=== PATIENT | female | born 2000 | race Caucasian/White ===

== ENCOUNTER 2023-09-06 01:43 | Emergency (ER) | payer SELFPAY ==
[2023-09-06 01:59] VITALS: BMI 27.9
[2023-09-06] MEDS ORDERED: MAG HYDROX/AL HYDROX/SIMETH 30 ML UNIT-DOSE CUP PO ONE (02:28)
[2023-09-06] MEDS ORDERED: SODIUM CHLORIDE 0.9% 500 ML INFUS.BAG IV ONE ×2 (02:29→03:38)
[2023-09-06] MEDS ORDERED: ACETAMINOPHEN 1000 MG/100 ML BAG IVPB ONE (02:30)
[2023-09-06] MEDS ORDERED: SIMETHICONE 80 MG TAB.CHEW (FP) PO PRN (02:31)
[2023-09-06] MEDS ORDERED: FAMOTIDINE 20 MG/50 ML IVPB 20 MG/50 ML MG IVPB ONE ×2 (02:33→03:05)
[2023-09-06] MEDS ORDERED: ACETAMINOPHEN INJECTION 100 ML IVPB ONE (02:33)
[2023-09-06] MEDS ORDERED: MAG HYDROX/AL HYDROX/SIMETH 30 ML UNIT-DOSE CUP ONE (02:33)
[2023-09-06] MEDS ORDERED: ONDANSETRON 4 MG/2 ML VIAL IVPUSH ONE (03:04)
[2023-09-06] MEDS ORDERED: ONDANSETRON 4 MG/2 ML VIAL ONE (03:05)
[2023-09-06 03:12] LABS: BASO % 0.4 % (0-2.0); EOS % 0.4 % (0-4.5); HEMATOCRIT 34.4 % (32.4-45.2); MCH 23.4 pg (25.7-33.7); MCHC 32.1 g/dl (32.0-36.0); MEAN PLT VOLUME 7.4 fl (7.5-11.1); MONO % 8.7 % (3.8-10.2); NEUT % 68.5 % (42.8-82.8); PLATELET COUNT 473 10^3/uL (134-434); RBC 4.71 M/mm3 (3.60-5.2); RDW 18.6 % (11.6-15.6); WHITE BLOOD COUNT 10.3 K/mm3 (4.0-10.0)
[2023-09-06 03:20] LABS: CALCIUM 9.4 mg/dL (8.5-10.1)
[2023-09-06 03:21] LABS: ALBUMIN 4.3 g/dl (3.4-5.0); BLOOD UREA NITROGEN 22.5 mg/dL (7-18)
[2023-09-06 03:23] LABS: CREATININE 1.5 mg/dL (0.55-1.3)
[2023-09-06 03:25] LABS: BILIRUBIN,TOTAL 0.4 mg/dL (0.2-1); TOT PROT 8.9 g/dl (6.4-8.2)
[2023-09-06 03:54] LABS: EPI CELLS >36 /uL (0-25.1); HYALINE CASTS 1 /uL (0-3.1); URINE APPEARANCE CLEAR; URINE BACTERIA 746 /uL (0-1359); URINE BILIRUBIN NEGATIVE (NEGATIVE); URINE COLOR YELLOW; URINE GLUCOSE (UA) NEGATIVE (NEGATIVE); URINE KETONE NEGATIVE (NEGATIVE); URINE LEUK ESTERASE 2+ (NEGATIVE); URINE NITRITE NEGATIVE (NEGATIVE); URINE PROTEIN 1+ (NEGATIVE); URINE RBC 49 /uL (0-23.9); URINE UROBILINOGEN 0.2 mg/dL (0.2-1.0); URINE WBC 36 /uL (0-25.8)
[2023-09-06] MEDS ORDERED: CEPHALEXIN MONOHYDRATE 500 MG CAPSULE (UD) PO ONE (04:16)
[2023-09-06] MEDS ORDERED: CEPHALEXIN MONOHYDRATE 500 MG CAPSULE (UD) ONE (04:21)
[2023-09-06 06:41] VITALS: BP 108/74; PULSE 68; RESP 12; TEMP 98
[2023-09-06 07:07] LABS: POTASSIUM 4.2 mmol/L (3.5-5.1)
[2023-09-06 07:08] LABS: CALCIUM 8.3 mg/dL (8.5-10.1)
[2023-09-06 07:09] LABS: BLOOD UREA NITROGEN 20.7 mg/dL (7-18)
[2023-09-06 07:12] LABS: CREATININE 1.4 mg/dL (0.55-1.3)
[2023-09-06] MEDS ORDERED: PSYLLIUM 5.85 GM PACKET PO SCH (10:00)
== END 2023-09-06 08:02 | disposition home or self-care (01) ==
LOC: JER 01:43
PROC: 3E033GC Introduction of Other Therapeutic Substance into Peripheral Vein, Percutaneous Approach (ICD-10-PCS; principal; 2023-09-06)
PROC: 3E033NZ Introduction of Analgesics, Hypnotics, Sedatives into Peripheral Vein, Percutaneous Approach (ICD-10-PCS; 2023-09-06)
PROC: 3E033GC Introduction of Other Therapeutic Substance into Peripheral Vein, Percutaneous Approach (ICD-10-PCS; 2023-09-06)
DX: R10.13 Epigastric pain (principal); K59.00 Constipation, unspecified; N39.0 Urinary tract infection, site not specified; R10.11 Right upper quadrant pain; R10.12 Left upper quadrant pain; R11.10 Vomiting, unspecified; R63.0 Anorexia; Z20.822 Contact with and (suspected) exposure to COVID-19
CPT/HCPCS: 0241U-QW; 36415; 74176-TC; 80048; 80053; 81003; 83690; 84703; 85025; 87086; 99284-25

== ENCOUNTER 2024-11-22 09:04 | Emergency (ER) | payer OTHER ==
[2024-11-22 09:24] VITALS: BP 147/88; RESP 16; TEMP 98.2; BMI 29.9
[2024-11-22] MEDS: SODIUM CHLORIDE 0.9% 500 ML INFUS.BAG IV ONE (10:49)
[2024-11-22 11:00] LABS: BASO % 0.7 % (0-2.0); EOS % 0.2 % (0-4.5); HEMATOCRIT 43.2 % (32.4-45.2); HEMOGLOBIN 14.6 GM/dL (10.7-15.3); LYMPH % 19.7 % (8-40); MCH 30.4 pg (25.7-33.7); MCHC 33.8 g/dl (32.0-36.0); MEAN CELL VOLUME 90.1 fl (80-96); MEAN PLT VOLUME 7.2 fl (7.5-11.1); MONO % 5.1 % (3.8-10.2); NEUT % 74.3 % (42.8-82.8); PLATELET COUNT 417 10^3/uL (134-434); RBC 4.79 M/mm3 (3.60-5.2); RDW 13.4 % (11.6-15.6); WHITE BLOOD COUNT 8.1 K/mm3 (4.0-10.0)
[2024-11-22] MEDS: SODIUM CHLORIDE 1,000 ML IV STA (11:07)
[2024-11-22 11:21] VITALS: PULSE 101
[2024-11-22 11:23] LABS: CALCIUM 10.1 mg/dL (8.5-10.1)
[2024-11-22 11:25] LABS: ALBUMIN 4.4 g/dl (3.4-5.0)
[2024-11-22 11:28] LABS: CREATININE 0.9 mg/dL (0.55-1.3)
[2024-11-22 11:29] LABS: BILIRUBIN,TOTAL 0.3 mg/dL (0.2-1); TOT PROT 8.8 g/dl (6.4-8.2)
[2024-11-22 11:59] LABS: PH,URINE 6.5 (5.0-8.0); URINE APPEARANCE CLEAR; URINE BILIRUBIN NEGATIVE (NEGATIVE); URINE COLOR YELLOW; URINE GLUCOSE (UA) NEGATIVE (NEGATIVE); URINE KETONE NEGATIVE (NEGATIVE); URINE LEUK ESTERASE NEGATIVE (NEGATIVE); URINE NITRITE NEGATIVE (NEGATIVE); URINE PROTEIN NEGATIVE (NEGATIVE); URINE UROBILINOGEN 0.2 mg/dL (0.2-1.0)
[2024-11-22 13:36] LABS: COCAINE, UR NEGATIVE (NEGATIVE); METHADONE, UR NEGATIVE (NEGATIVE); OPIATES, URI NEGATIVE (NEGATIVE); URINE BENZODIAZEPINES NEGATIVE (NEGATIVE)
[2024-11-22 13:37] LABS: PHENCYCLIDINE,URINE NEGATIVE (NEGATIVE)
[2024-11-22 13:38] LABS: URINE AMPHETAMINES NEGATIVE (NEGATIVE); URINE BARBITURATES NEGATIVE (NEGATIVE)
== END 2024-11-22 16:09 | disposition home or self-care (01) ==
LOC: JER 09:04
PROC: 3E0337Z Introduction of Electrolytic and Water Balance Substance into Peripheral Vein, Percutaneous Approach (ICD-10-PCS; principal; 2024-11-22)
DX: R51.9 Headache, unspecified (principal); R42 Dizziness and giddiness; R11.10 Vomiting, unspecified; T45.0X2A Poisoning by antiallergic and antiemetic drugs, intentional self-harm, initial encounter; R00.0 Tachycardia, unspecified; R10.9 Unspecified abdominal pain
CPT/HCPCS: 36415; 71045-TC-FY; 80053; 80307; 81003; 82550; 84703; 85025; 87086; 93005; 93010; 99285-25